=== PATIENT | male | born 1975 | race African-American/Black ===

== ENCOUNTER 2024-07-22 17:06 | Emergency (ER) | payer MEDICAID, OTHER ==
[~2024-07-22] VITALS: Ht 177.8 cm; Wt 99.8 kg
[2024-07-22 17:49] LABS: BASOPHILS % (AUTO) 0.5 % (0.0-2.0); EOSINOPHILS # (AUTO) 0.2 K/uL (0.0-0.7); EOSINOPHILS % (AUTO) 2.8 % (0.0-6.0); HEMATOCRIT 42 % (39-51); HEMOGLOBIN 13.9 g/dL (13.5-17.5); LYMPHOCYTES % (AUTO) 28.1 % (20.0-44.0); MEAN CORPUSCULAR HEMOGLOBIN 30 PG (26.0-33.0); MEAN CORPUSCULAR HGB CONC 33 g/dl (31.0-36.0); MEAN CORPUSCULAR VOLUME 90 fL (80-96); MONOCYTES # (AUTO) 0.7 K/uL (0.1-1.30); MONOCYTES % (AUTO) 10.2 % (2.0-12.0); NEUTROPHILS # (AUTO) 4.1 K/uL (1.8-8.9); NEUTROPHILS % (AUTO) 58.4 % (43.0-81.0); PLATELET COUNT (AUTO) 242 K/uL (150-450); RED CELL DISTRIBUTION WIDTH 14.8 % (11.5-15.0)
[2024-07-22 18:10] LABS: CALCIUM, SERUM 8.7 mg/dL (8.5-10.1); CARBON DIOXIDE 28 mmol/L (21-32); CHLORIDE 104 mmol/L (98-107); CREATININE 1.1 mg/dL (0.6-1.3); GLUCOSE 124 mg/dL (74-106); POTASSIUM 3.6 mmol/L (3.5-5.1); SODIUM SERUM 140 mmol/L (136-145); UREA NITROGEN, BLOOD 14 mg/dL (7-18)
[2024-07-22 20:35] VITALS: BP 138/85; TEMP 98.1; O2SAT 98
== END 2024-07-22 20:37 ==
LOC: ER 17:16
DX: R07.89 Other chest pain (principal); F20.9 Schizophrenia, unspecified; I10 Essential (primary) hypertension; K21.9 Gastro-esophageal reflux disease without esophagitis; Z65.3 Problems related to other legal circumstances; Z76.5 Malingerer [conscious simulation]; Z95.0 Presence of cardiac pacemaker; Z60.2 Problems related to living alone
CPT/HCPCS: 36415; 71045-TC; 80048-TC; 84484-TC; 85025-TC